=== PATIENT | female | born 1970 | race African-American/Black ===

== ENCOUNTER 2017-09-17 21:13 | Emergency (ER) | payer MEDICAID ==
[~2017-09-17] VITALS: Ht 162.6 cm; Wt 88.6 kg
[2017-09-17 21:22] VITALS: BP 142/75; PULSE 89; RESP 18; TEMP 98.1; O2SAT 97
[2017-09-17] MEDS ORDERED: CLOB0.05 TOPICAL (23:16)
--- NOTE | 2017-09-17 23:16 | PD ---
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 Her symptoms are constant, moderate severity and associated with a cheesy discharge. She also has had scaling and dryness of the external genitalia which she feels is getting worse. She has had one sexual partner in the last 6 months. She denies any fevers or chills and denies any abdominal pain. PFSH Past Medical History Tetanus Vaccination: Unknown Influenza Vaccination: No ?: Not LMP: 09/06/17 Social History Alcohol Use: Yes (SOCC) Tobacco Use: Yes (1PPD) Substance Use: No Allergies-Medications (Allergen,Severity, Reaction): Coded Allergies: No Known Allergies (Unverified , 09/17/17) Reported Meds & Prescriptions Reported Meds & Active Scripts Active Clobetasol Topical (Clobetasol Propionate) 0.05% Oint 1 Applic TOPICAL BID Review of Systems Except as stated in HPI: all other systems reviewed are Neg Physical Exam Narrative GENERAL: Well-appearing, no acute distress, nontoxic SKIN: Warm and dry. HEAD: Atraumatic. Normocephalic. ENT: No nasal bleeding or discharge. 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 MUSCULOSKELETAL: No obvious deformities. No clubbing. No cyanosis. No edema. NEUROLOGICAL: Awake and alert. No obvious cranial nerve deficits. Motor grossly within normal limits. Normal speech. PSYCHIATRIC: Appropriate mood and affect; insight and judgment normal. Data Data Last Documented VS Vital Signs Date Time Temp Pulse Resp B/P (MAP) Pulse Ox O2 Delivery O2 Flow Rate FiO2 09/17/17 21:22 98.1 89 18 142/75 (97) 97 Orders Orders Fluconazole (Diflucan) (09/17/17 23:30) Ed Discharge Order (09/17/17 23:16) Gc And Chlamydia Pcr (09/17/17 23:25) Labs Laboratory Tests Test 09/18/17 00:[address] [facility] Medical Decision Making Medical Screen Exam Complete: Yes Emergency Medical Condition: Yes Interpretation(s) Afebrile, no tachycardia, mild hypertension Differential Diagnosis Yeast infection, gonorrhea, chlamydia, bacterial vaginosis Narrative Course This is a 47-year-old female who presents to the emergency department with itching in her vagina. She has evidence of a yeast infection on exam and externally she appears to have thickened skin of her vulva which may be lichen planus. 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 Diagnosis Primary Impression: Yeast infection Patient Instructions: General Instructions Additional Instructions: Follow-up with your yarn polishing machine operator as soon as possible. If you develop abdominal pain, fevers or chills return to the emergency room. Med/Other Pt SpecificInfo: Prescription(s) given Scripts Clobetasol Topical (Clobetasol Topical) 0.05% Oint 1 APPLIC TOPICAL BID, #30 GM 0 Refills Prov: Lilliana Hernandez MD 09/17/17 Disposition: 01 DISCHARGE HOME Condition: Stable Lilliana Hernandez MD Sep 17, 2017 23:16
[2017-09-17] MEDS ORDERED: FLUCONAZOLE 100 MG TAB PO ONE (23:30)
== END 2017-09-17 23:52 | disposition home or self-care (01) ==
LOC: PHED 21:13
DX: B37.3 Candidiasis of vulva and vagina (principal); F17.210 Nicotine dependence, cigarettes, uncomplicated
CPT/HCPCS: 87491; 87591; 99284